=== PATIENT | male | born 1995 | race Caucasian/White ===

== ENCOUNTER 2021-05-22 08:47 | Day surgery (SDC) | payer OTHER ==
[2021-05-18 11:23] VITALS: BMI 26.6
[~2021-05-22 08:47] MED LIST: LACTATED RINGERS 1,000 ML IV SCH
[2021-05-22 09:14] VITALS: TEMP 97.8
[2021-05-22] MEDS ORDERED: PROPOFOL 10 MG/ML 20 ML VIAL IV ONE (10:03)
[2021-05-22] MEDS ORDERED: MIDAZOLAM 2 MG/2 ML VIAL ONE (10:03)
--- NOTE | 2021-05-22 10:21 | P.PCN ---
Date of Procedure: 05/22/21 Procedure(s) Performed: PREOPERATIVE DIAGNOSIS: Rectal bleeding with change in bowel habits POSTOPERATIVE DIAGNOSIS: Normal exam PROCEDURE: Colonoscopy ANESTHESIA: MAC SURGEON: Reece Bowamn M.D. SPECIMENS: None ENDOSCOPIC PROCEDURE: The patient was placed on the endoscopy table in the left decubitus position. The Olympus colonoscope was inserted into the anus and passed under direct visualization to the base of the cecum. The appendiceal orifice was visualized. From that point the scope was slowly withdrawn inspecting all surfaces carefully. There were no neoplastic inflammatory or polypoid lesions throughout the cecum, ascending, transverse, descending, sigmoid and rectum. There was no visible diverticulosis noted. Digital rectal examination was normal. There appeared to be some slight thickening posterior midline in the anal canal that may have been related to previous anal fissure with subsequent healing. The patient was taken to the recovery room in stable condition per anesthesia guidelines. RECOMMENDATIONS: Continue increasing fiber. Monitor for recurrent bleeding. If symptoms of pain and bleeding recur we will initiate topical agent for anal fissure.
[2021-05-22 10:43] VITALS: PULSE 52
[2021-05-22 11:07] VITALS: BP 112/64; RESP 16
== END 2021-05-22 11:15 | disposition home or self-care (01) ==
LOC: ORWHC2ENDO 08:47
PROVIDERS: ATTEND Surgery
DX: K62.5 Hemorrhage of anus and rectum (principal); R19.4 Change in bowel habit; K64.9 Unspecified hemorrhoids; F17.210 Nicotine dependence, cigarettes, uncomplicated
CPT/HCPCS: 45378; J2250; J2704

== ENCOUNTER → 2022-07-05 | Outpatient (CLI) | payer OTHER ==
--- NOTE | 2022-07-05 14:20 | XR ---
EXAMINATION TYPE: XR foot complete LT DATE OF EXAM: 07/05/2022 CLINICAL HISTORY: Pain. TECHNIQUE: Frontal, lateral, and oblique images of the left foot are obtained. COMPARISON: None FINDINGS: There is no acute fracture/dislocation evident in the left foot. The joint spaces in the left foot appear within normal limits. The overlying soft tissue appears unremarkable. IMPRESSION: Unremarkable study.
== END | disposition home or self-care (01) ==
LOC: RADXRMAIN 13:56
PROVIDERS: ATTEND Nurse Practitioner Family
DX: M79.672 Pain in left foot (principal)